=== PATIENT | male | born 1940 | race African-American/Black ===

== ENCOUNTER 2019-01-14 09:26 | Emergency (ER) | payer OTHER, MEDICAID ==
[~2019-01-14] VITALS: Ht 175.3 cm; Wt 56.7 kg
[~2019-01-14 09:26] MED LIST: AMLO5TAB10 PO; ASPI325T11 PO; ASPI325T70 PO; CARV12.511 PO; HYDR12.58 PO; LISI-334 PO; MULT-245 PO; NAPR-514 PO; PANT40TA77 PO; SIMV20TA3 PO
--- NOTE | 2019-01-14 10:03 | PHYS DOC ---
Past Medical History Past Medical History: High Cholesterol, Hypertension, ME Past Surgical History: Angioplasty, Pacemaker, Other Additional Past Surgical Histo: stent Alcohol Use: None Drug Use: Marijuana Adult General Chief Complaint Chief Complaint: BACK PAIN - NO INJURY HPI HPI Patient is a 78 year old AA male who presents to the ER with complaints of pain in his right leg for the last week. He denies any fall or injury. He states at first the pain was in his right hip but now it extends all the way down his leg to his calf. He denies any hx of blood clots. Pt states the pain eases if he is resting but comes back once he is up moving around. Currently, he denies any pain at rest. Review of Systems Review of Systems Constitutional: Denies fever or chills [] HENT: Denies nasal congestion or sore throat [] Respiratory: Denies cough or shortness of breath [] Cardiovascular: Denies chest pain, shortness of breath, palpitations, or lower extremity swelling. No additional information not addressed in HPI [] GI: Denies abdominal pain, nausea, vomiting, or diarrhea [] Musculoskeletal: Denies back pain; see HPI Integument: Denies rash or skin lesions [] Neurologic: Denies headache, focal weakness or sensory changes [] Complete systems were reviewed and found to be within normal limits, except as documented in this note. Allergies Allergies Allergies Coded Allergies Type Severity Reaction Last Updated Verified morphine Allergy Intermediate 12/04/13 No Physical Exam Physical Exam Constitutional: Well developed, well nourished, no acute distress, non-toxic appearance. [] HENT: Normocephalic, atraumatic, bilateral external ears normal, nose normal. [] Eyes: PERRLA, EOMI, conjunctiva normal, no discharge. [] Neck: Normal range of motion, no stridor. [] Cardiovascular:Heart rate regular rhythm, no murmur [] Lungs & Thorax: Bilateral breath sounds clear to auscultation [] Skin: Warm, dry, no erythema, no rash. [] Back: No tenderness, no CVA tenderness. [] Extremities: No tenderness, no cyanosis, no clubbing, ROM intact, no edema. [] Neurologic: Alert and oriented X 3, no focal deficits noted. [] Psychologic: Affect normal, judgement normal, mood normal. [] Current Patient Data Vital Signs Vital Signs Date Time Temp Pulse Resp B/P (MAP) Pulse Ox O2 Delivery O2 Flow Rate FiO2 01/14/19 09:29 97.9 65 14 147/74 (98) 97 Room Air 97.9 EKG EKG [] Radiology/Procedures Radiology/Procedures PROCEDURE: VENOUS LOWER EXTREMITY RIGHT Right lower extremity venous doppler ultrasound Indication: Right hip and right leg pain for one week Technique: Color Doppler, grayscale, and spectral waveform analysis is used to evaluate the right femoral and popliteal veins. Findings: No evidence of deep venous thrombosis. Normal response to augmentation, normal compressibility and normal phasicity is demonstrated. Visualized calf veins are patent. Impression: Negative for deep venous thrombosis PROCEDURE: HIP RIGHT 2V WITH PELVIS HIP RIGHT 2V WITH PELVIS Clinical Indication: Right hip pain x1 week, no injury. Comparison: AP right hip May 26, 2012. Findings: No acute pelvic bone abnormality. Sacroiliac joints are symmetric. No diastasis of symphysis pubis. Mild joint space narrowing of the bilateral hips, mild sclerosis of the acetabulum. No acute fracture or dislocation of the right hip. The mineralization is normal. Soft tissues unremarkable. IMPRESSION: No acute bone abnormality. [] Course & Med Decision Making Course & Med Decision Making Pertinent Labs and Imaging studies reviewed. (See chart for details) dx: R leg pain U/S of RLE and R hip xray are negative for any acute findings. Prescription written for tramadol. Follow up with primary care doctor if symptoms persist, return to the ER if symptoms worsen. Patient verbalized an understanding of home care, medications, follow-up, and return to ED instructions and was in agreement with the plan of care. [] Dragon Disclaimer Dragon Disclaimer This electronic medical record was generated, in whole or in part, using a voice recognition dictation system. Departure Departure Impression: Primary Impression: Right leg pain Disposition: HOME, SELF-CARE Condition: STABLE Referrals: ROB PATTERSON MD (PCP) Patient Instructions: Hip Pain Additional Instructions: Fill the prescription and use as directed. Your x-ray and ultrasound were negative for any fracture or blood clots today. Follow up with your primary care doctor if symptoms persist, return to the ER if symptoms worsen. Scripts Tramadol Hcl (TRAMADOL HCL) 50 Mg Tablet 50 MG PO Q6HRS PRN for PAIN for 3 Days, #12 TAB 0 Refills Prov: SHANNON MARTINEZ APRN 01/14/19 SHANNON MARTINEZ APRN Jan 14, 2019 10:03
--- NOTE | 2019-01-14 10:27 | RAD ---
HIP RIGHT 2V WITH PELVIS Clinical Indication: Right hip pain x1 week, no injury. Comparison: AP right hip May 26, 2012. Findings: No acute pelvic bone abnormality. Sacroiliac joints are symmetric. No diastasis of symphysis pubis. Mild joint space narrowing of the bilateral hips, mild sclerosis of the acetabulum. No acute fracture or dislocation of the right hip. The mineralization is normal. Soft tissues unremarkable. IMPRESSION: No acute bone abnormality. Electronically signed by: Bear Kendall MD (01/14/2019 10:23 AM) [id number]
--- NOTE | 2019-01-14 10:44 | RAD ---
Right lower extremity venous doppler ultrasound Indication: Right hip and right leg pain for one week Technique: Color Doppler, grayscale, and spectral waveform analysis is used to evaluate the right femoral and popliteal veins. Findings: No evidence of deep venous thrombosis. Normal response to augmentation, normal compressibility and normal phasicity is demonstrated. Visualized calf veins are patent. Impression: Negative for deep venous thrombosis Electronically signed by: Edmund Ye MD (01/14/2019 10:41 AM) [id number]
[2019-01-14] MEDS ORDERED: TRAM50TA PO (10:59)
[2019-01-14 11:29] VITALS: BP 146/81
== END 2019-01-14 11:29 | disposition home or self-care (01) ==
LOC: ER 09:26
DX: M79.604 Pain in right leg (principal); M25.551 Pain in right hip; E78.00 Pure hypercholesterolemia, unspecified; I10 Essential (primary) hypertension; I25.2 Old myocardial infarction; Z95.0 Presence of cardiac pacemaker; Z95.5 Presence of coronary angioplasty implant and graft
CPT/HCPCS: 73502; 93971; 99284